=== PATIENT | female | born 1970 | race African-American/Black ===

== ENCOUNTER 2021-12-02 17:24 | Emergency (ER) | payer SELFPAY ==
--- NOTE | 2021-12-02 17:25 | ECG_ITS ---
Measurements Intervals [place] Rate: 80 P: 23 IL: 206 QRS: 3 QRSD: 93 T: 35 QT: 380 QTc: 439 Interpretive Statements SINUS RHYTHM BORDERLINE R WAVE PROGRESSION, ANTERIOR LEADS BORDERLINE T WAVE ABNORMALITY- ANTERIOR LEADS BORDERLINE ECG Electronically Signed On 12-03-2021 6:30:37 CDT by Carlos Phan D.O.
[2021-12-02 17:26] VITALS: BP 149/78; PULSE 83; RESP 20; TEMP 36.6; O2SAT 100
[2021-12-02 17:39] LABS: Basophils Percent Auto 0.5 % (0.2-1.2); Eosinophils Absolute Auto 0.1 K/mm3 (0-0.3); Eosinophils Percent Auto 1.1 % (0-4.4); Hematocrit 39.3 % (37.0-47.0); Hemoglobin 12.3 g/dL (12.0-15.0); Immature Granulocyte Absolute 0.04 K/mm3 (0.00-0.031); Immature Granulocyte Percent A 0.5 % (0-0.5); Lymphocytes Absolute Auto 2.14 K/mm3 (0.9-3.2); Lymphocytes Percent Auto 28.2 % (18.3-44.2); Mean Corpuscular HGB Conc 31.3 g/dl (32-36); Mean Corpuscular Volume 83.1 fl (80-100); Mean Platelet Volume 10.3 fl (7.4-10.4); Monocytes Absolute Auto 0.5 K/mm3 (0.1-0.6); Monocytes Percent Auto 6.1 % (2.6-8.5); Neutrophils Absolute Auto 4.8 K/mm3 (1.3-6.7); Neutrophils Percent Auto 63.6 % (45.5-73.1); Platelet Count Result 307 k/mm3 (150-375); Red Blood Count 4.73 M/mm3 (4.2-5.4); Red Cell Distribution Width 14.5 % (11.5-14.5); White Blood Count 7.6 K/mm3 (4.5-10.0)
[2021-12-02 17:53] LABS: Alanine Aminotransferase 18 U/L (4-35); Albumin Level 4.7 g/dL (3.5-5.1); Alkaline Phosphatase 92 U/L (38-126); Anion Gap 10 mmol/L (8-16); Aspartate Amino Transferase 31 U/L (14-36); Bilirubin,Total 0.2 mg/dL (0.2-1.3); Blood Urea Nitrogen 18 mg/dL (7-17); Calcium 9.1 mg/dL (8.4-10.2); Carbon Dioxide 27 mmol/L (22-30); Chloride 101 mmol/L (98-107); Estimated CRCL calculation 80 ml/min; Estimated Glomerular Filt Rate > 60; Glucose 114 mg/dL (65-110); Potassium 3.5 mmol/L (3.4-5.0); Sodium 138 mmol/L (137-145)
[2021-12-02 18:23] VITALS: BP 116/78; PULSE 76; RESP 18; O2SAT 98
[2021-12-02 18:59] LABS: Add Urine Microscopic? YES; Appearance Urine Clear (Clear); Bilirubin Urine Negative (Negative); Blood Urine 1+ (Negative); Color Urine Straw (Yellow); Glucose Urine UA Negative (Negative); Ketones Urine Negative (Negative); Leukocyte Esterase Ur Negative LEU/UL (Negative); Nitrate Urine Negative (Negative); Protein Urine Negative (Negative); RBC Urine 0-2 /hpf (0-2); Specific Grav Ur 1.011 (1.001-1.035); Squamous Epithelial Cell Urine Rare /hpf (Few); Urobilinogen Urine Negative mg/dL (<2.0); WBC Urine 0-3 /hpf
--- NOTE | 2021-12-02 19:15 | ED.SYNCOPE ---
HPI - Syncope General Chief Complaint: Syncope Stated Complaint: SYNCOPAL EPISODE Time Seen by Provider: 12/02/21 18:36 History of Present Illness HPI narrative: Patient is a 51-year-old female with a history of high blood pressure who presents emergency department for evaluation of a syncopal episode earlier today. Patient states she was at lunch with some friends, when she felt flushed and then slid down her chair. She states she woke up on the ground, feeling somewhat lightheaded, but shortly returned to her baseline. States that she was in her usual state of health this morning and in the preceding week. She is presently asymptomatic, and denies any chest pain, shortness of breath, headaches, visual changes, weakness, lightheadedness, abdominal pain, nausea, vomiting. Friend in the room who witnessed the event states that patient sat on the ground, did not have any jerking movements, and did not hit her head. No tongue laceration or urinary incontinence. Patient does admit to using THC today. Reports similar syncopal episode 3 months ago while she was seated. At that time, she went to the emergency department, had a full work-up including head CT, and was discharged clear syncopal etiology. She did follow-up with a neurologist last month per recommendation of her PCP, and no clear cause for her syncope was identified. Related Data Home Medications Medication Instructions Recorded Confirmed metoprolol tartrate 25 mg PO DAILY 12/02/21 12/02/21 Allergies Allergy/AdvReac Type Severity Reaction Status Date / Time No Known Allergies Allergy Verified 12/02/21 17:29 Review of Systems Review of Systems: Gen: Reports syncope. Denies fevers or chills Eyes: Denies eye pain or visual change ENT: Denies congestion Respiratory: Denies shortness of breath or cough CV: Denies chest pain or palpitations GI: Denies abdominal pain nausea, emesis or diarrhea : denies burning, urgency, frequency or hematuria Musculoskeletal: Denies back pain or muscle pain Neuro: Denies numbness, tingling, weakness or focal weakness Skin: Denies rash Except as documented, all other systems reviewed and negative All systems reviewed & are unremarkable except as noted in HPI and below Exam Narrative: APPEARANCE: Well appearing, no pain in distress, well-nourished. Head: normocephalic and atraumatic. EYES: PERRLA/EOMI, conjunctivae clear NOSE: No nasal drainage EARS: External ear normal in appearance THROAT: Oropharynx is clear. Mucous membranes are moist. NECK: No carotid bruits. No JVD. Supple. No adenopathy, no masses. RESPIRATORY: Airway patent, respirations nonlabored. Clear to auscultation bilaterally, no rales, rhonchi, wheezing. CARDIOVASCULAR: Regular rate and rhythm without murmurs, rubs, or gallops. ABDOMINAL: Normoactive bowel sounds. Soft, nontender, nondistended. No rebound tenderness or guarding. MUSCULOSKELETAL: Extremities are warm and well-perfused. Moves all extremities well. No edema. NEURO: Normal gait. Normal speech. No focal neurologic deficits. SKIN: Skin is warm and dry. No rashes. PSYCHIATRIC: Normal affect/mood. Course Vital Signs Vital signs: Vital Signs Temperature 97.8 F 12/02/21 17:26 Pulse Rate 83 12/02/21 17:26 Respiratory Rate 20 12/02/21 17:26 Blood Pressure 149/78 H 12/02/21 17:26 Pulse Oximetry 100 12/02/21 17:26 Temperature 97.8 F 12/02/21 17:26 Pulse Rate 82 12/02/21 20:40 Respiratory Rate 16 12/02/21 20:40 Blood Pressure 127/76 12/02/21 20:40 Pulse Oximetry 100 12/02/21 20:40 MDM - Syncope MDM Narrative Medical decision making narrative: 51-year-old female here after syncopal episode earlier today, no head injury, presently asymptomatic. Similar episode 3 months ago, full workup obtained in the ED and follow-up with neurologist without obvious cause for syncope. EKG in normal sinus rhythm, labs unremarkable for acute process. Orthostatics negative. [facility]
[2021-12-02 20:09] VITALS: BP 115/63; PULSE 79
[2021-12-02 20:10] VITALS: BP 118/68; PULSE 87
[2021-12-02 20:11] VITALS: BP 127/76; PULSE 91
[2021-12-02 20:40] VITALS: BP 127/76; PULSE 82; RESP 16; O2SAT 100
== END 2021-12-02 20:19 | disposition home or self-care (01) ==
PROVIDERS: Emergency Medicine; Emergency Provider Emergency Medicine
DX: R55 Syncope and collapse (principal); I10 Essential (primary) hypertension; R94.31 Abnormal electrocardiogram [ECG] [EKG]
CPT/HCPCS: 36415; 80053; 81001; 81025; 85025; 93005; 99283